=== PATIENT | male | born 1960 | race Caucasian/White ===

== ENCOUNTER → 2017-06-18 | Outpatient (CLI) | payer OTHER ==
[~2017-06-18] MED LIST: HCTZ 25MG25 MG PO; LEXAPRO20 MG PO; SINGULAIR10 MG PO
== END ==
LOC: COL.VAS 13:55
DX: R55 Syncope and collapse (principal); I10 Essential (primary) hypertension

== ENCOUNTER → 2019-06-01 | Outpatient (CLI) | payer OTHER | LOC: COL.RAD 12:55 | DX: K57.32 Diverticulitis of large intestine without perforation or abscess without bleeding (principal) | CPT/HCPCS: Q9967 ==

== ENCOUNTER 2021-09-16 17:10 | Outpatient (CLI) | payer OTHER ==
[2021-09-16] VITALS (7 sets, daily range): BP systolic 112–136; BP diastolic 75–82; PULSE 82–95; TEMP 99.9
[~2021-09-16 17:10] MED LIST changes: +COZAAR100 MG PO; +FLONASE NASAL S16 GM NS; +HCTZ 25MG TAB25 MG PO; -HCTZ 25MG25 MG PO; +MASON NATURAL2000 IU PO; +MELATONIN5 M1 SL; +NATURAL IRON65 MG PO; +NEXIUM 40MG40 MG PO; +PHARMASSURE CHE30 MG PO; +SINGULAIR 110 MG/TAB PO; -SINGULAIR10 MG PO; +VITAMINC1000TA PO
== END 2021-09-16 17:15 | disposition home or self-care (01) ==
LOC: EUO 17:10
DX: U07.1 COVID-19 (principal)
CPT/HCPCS: M0245

== ENCOUNTER → 2022-12-14 | Outpatient (CLI) | payer BC | LOC: COL.PUL 10:25 | DX: D86.0 Sarcoidosis of lung (principal); R05.9 Cough, unspecified ==

== ENCOUNTER → 2023-01-07 | Outpatient (CLI) | payer BC | LOC: COL.PUL 09:36 | DX: D86.9 Sarcoidosis, unspecified (principal); R05.8 Other specified cough ==